=== PATIENT | female | born 1980 | race Two or more races ===

== ENCOUNTER 2018-04-24 22:23 | Emergency (ER) | payer SELFPAY ==
[~2018-04-24] VITALS: Ht 167.6 cm; Wt 86.8 kg
[2018-04-25] MEDS ORDERED: ACETAMINOPHEN 325MG TABLET PO ONE (01:15)
[2018-04-25 03:46] VITALS: BP 113/73
== END 2018-04-25 04:02 | disposition home or self-care (01) ==
LOC: ER 22:23
DX: O26.891 Other specified pregnancy related conditions, first trimester (principal); Z3A.12 12 weeks gestation of pregnancy; R10.9 Unspecified abdominal pain; S00.83XA Contusion of other part of head, initial encounter; V43.62XA Car passenger injured in collision with other type car in traffic accident, initial encounter; Y93.9 Activity, unspecified; Y92.410 Unspecified street and highway as the place of occurrence of the external cause
CPT/HCPCS: 76801; 76817; 81025; 99284; Z7610